=== PATIENT | male | born 1980 | race Caucasian/White ===

== ENCOUNTER 2016-05-20 02:27 | Emergency (ER) | payer OTHER ==
[~2016-05-20] VITALS: Ht 172.7 cm; Wt 78.5 kg
[2016-05-20 02:30] VITALS: BP 154/82
--- NOTE | 2016-05-20 02:46 | PHYS DOC ---
Past Medical History Past Medical History: GERD Past Surgical History: No Surgical History Alcohol Use: Sober Drug Use: None Adult General Chief Complaint Chief Complaint: UPPER EXTREMITY PAIN HPI HPI Patient is a 35 year old male with suspected carpal tunnel syndrome and left rotator cuff pathology who presents with pain in bilateral upper extremities from his forearms distal, circumferentially. States that it is a numb, achy pain. His pain is worse when he sleeps. He is currently taking tramadol during the day and hydrocodone at night as prescribed by his primary care doctor. He is currently seeing an orthopedist for his pains as well. He has received left shoulder joint injections 3 without resolution of his symptoms and his orthopedist suspects he needs surgery. He came here for symptom control of breakthrough pain while on his medications. He denies new injury. Review of Systems Review of Systems Constitutional: Denies fever or chills [] Eyes: Denies change in visual acuity, redness, or eye pain [] HENT: Denies nasal congestion or sore throat [] Respiratory: Denies cough or shortness of breath [] Cardiovascular: No additional information not addressed in HPI [] GI: Denies abdominal pain, nausea, vomiting, bloody stools or diarrhea [] : Denies dysuria or hematuria [] Musculoskeletal: Denies back pain [] Integument: Denies rash or skin lesions [] Neurologic: Denies headache, focal weakness or sensory changes [] Endocrine: Denies polyuria or polydipsia [] Current Medications Current Medications Current Medications Medications (Trade) Dose Ordered Sig/[facility] Start Time Stop Time Status Last Admin Dose Admin Ketorolac Tromethamine (Toradol Im) 30 mg 1X ONCE 05/20/16 03:00 05/20/16 03:01 Allergies Allergies Allergies Coded Allergies Type Severity Reaction Last Updated Verified No Known Drug Allergies 05/15/14 No Physical Exam Physical Exam Constitutional: Well developed, well nourished, no acute distress, non-toxic appearance. [] HENT: Normocephalic, atraumatic, bilateral external ears normal, oropharynx moist, nose normal. [] Eyes: PERRLA, EOMI. [] Neck: Normal range of motion, supple. [] Cardiovascular:Heart rate regular rhythm [] Lungs & Thorax: Bilateral breath sounds clear to auscultation [] Abdomen: Bowel sounds normal, soft, no tenderness. [] Skin: Warm, dry, no erythema, no rash. [] Back: Normal range of motion. [] Extremities: Bilateral upper extremities: No obvious deformity or discoloration ; Full ROM with shoulder/elbow/wrist/hand; Can pronate/supinate; Can make fist/ ok sign/thumb up/finger cross and spread; Can flex/ex wrist; Good radial pulse and brisk cap refill equal bilaterally; sensation intact to light touch m/u/r/ ax nerves Neurologic: Alert and oriented X 3, normal motor function, normal sensory function, no focal deficits noted. [] Psychologic: Affect normal, judgement normal, mood normal. [] Current Patient Data Vital Signs Vital Signs Date Time Temp Pulse Resp B/P Pulse Ox O2 Delivery O2 Flow Rate FiO2 05/20/16 02:30 97.8 2 16 96 Room Air 97.8 Course & Med Decision Making Course & Med Decision Making Intramuscular Toradol injection given. Encouraged him to follow up with his primary care doctor and orthopedist for further pain management. Return precautions given. He understands and agrees with plan. Dragon Disclaimer Dragon Disclaimer This electronic medical record was generated, in whole or in part, using a voice recognition dictation system. Departure Departure Impression: Primary Impression: Bilateral arm pain Disposition: HOME, SELF-CARE Condition: STABLE Referrals: NO PCP (PCP) Patient Instructions: Musculoskeletal Pain Additional Instructions: Continue your current medications. Follow-up with your orthopedist. Return for any concerns. Hardeep CARRENO MD May 20, 2016 02:46
[2016-05-20] MEDS ORDERED: KETOROLAC TROMETHAMINE 60 MG/2 ML SYRINGE. IM ONE (03:00)
== END 2016-05-20 03:00 | disposition home or self-care (01) ==
LOC: ER 02:27
DX: M79.601 Pain in right arm (principal); M79.602 Pain in left arm
CPT/HCPCS: 96372; 99283; J1885